=== PATIENT | male | born 1950 | race Caucasian/White ===

== ENCOUNTER 2020-02-29 11:02 | Outpatient (CLI) | payer MEDICARE, BC ==
--- NOTE | 2020-02-29 11:46 | RAD ---
2 VIEWS CHEST: Date: 02/29/2020 HISTORY: Cough and wheezing. FINDINGS: Lungs appear clear of focal infiltrate. Heart size upper normal. Vascular markings within normal rang e. IMPRESSION: No evidence of infiltrate. POS: [id number]
== END 2020-02-29 11:03 | disposition home or self-care (01) ==
LOC: MADRAD 11:02
PROVIDERS: ATTEND Nurse Practitioner Family
DX: R05 Cough (principal); R06.2 Wheezing; Z72.0 Tobacco use
CPT/HCPCS: 71046